=== PATIENT | male | born 1955 | race Caucasian/White ===

== ENCOUNTER 2017-04-16 22:49 | Emergency (ER) | payer SELFPAY ==
[~2017-04-16] VITALS: Ht 172.7 cm; Wt 67.0 kg
[2017-04-16 22:56] VITALS: BP 162/92; PULSE 102; RESP 18; TEMP 98.5
--- NOTE | 2017-04-16 23:14 | PD ---
HPI Chief Complaint: Alcohol/Drug Intoxication Time Seen by Provider: 23:09 Travel History International Travel<30 days: No Contact w/Intl Traveler<30days: No Traveled to known affect area: No History of Present Illness HPI Patient 61-year-old homeless male presents emergency department for evaluation of generalized weakness. Patient apparently went into a local gas station and asked the mail clerks supervisor to call 911 because he wasn't feeling well. Patient cannot really expand further except stating that his feet hurt him because he's been walking all day. He does deny any chest pain shortness of breath abdominal pain nausea or vomiting. According to EMS the patient stated he wanted the mail clerks supervisor call 911 but not before he had another beer. Patient states she's only had one beer today which is his norm. He states occasionally he drinks morbidly hasn't tonight. PFSH Past Medical History ?: Not Social History Alcohol Use: Yes Tobacco Use: Yes Substance Use: No Allergies-Medications (Allergen,Severity, Reaction): Coded Allergies: No Known Allergies (Unverified , 04/16/17) Review of Systems Except as stated in HPI: all other systems reviewed are Neg Physical Exam Narrative GENERAL: Well-developed well-nourished, unkempt, no obvious distress. SKIN: Generalized plaque-like lesions consistent with psoriasis which he states he has a history of. The lesions of feet no cellulitis. HEAD: Atraumatic. Normocephalic. EYES: Pupils equal and round. No scleral icterus. No injection or drainage. ENT: No nasal bleeding or discharge. Mucous membranes pink and moist. NECK: Trachea midline. No JVD. CARDIOVASCULAR: Regular rate and rhythm. No murmur appreciated. RESPIRATORY: No accessory muscle use. Clear to auscultation. Breath sounds equal bilaterally. GASTROINTESTINAL: Abdomen soft, non-tender, nondistended. Hepatic and splenic margins not palpable. MUSCULOSKELETAL: No obvious deformities. No clubbing. No cyanosis. No edema. NEUROLOGICAL: Awake and alert. No obvious cranial nerve deficits. Motor grossly within normal limits. Normal speech. PSYCHIATRIC: Appropriate mood and affect; insight and judgment normal. Data Data Last Documented VS Vital Signs Date Time Temp Pulse Resp B/P Pulse Ox O2 Delivery O2 Flow Rate FiO2 04/17/17 01:47 88 16 154/72 04/16/17 22:56 98.5 Orders Complete Blood Count With Diff (04/16/17 23:13) Comprehensive Metabolic Panel (04/16/17 23:13) Alcohol (Ethanol) (04/16/17 23:13) Sodium Chlor 0.9% 1000 Ml Inj (Ns 1000 M (04/16/17 23:15) Multivitamin (Theragran) (04/16/17 23:15) Chest, Single Ap (04/16/17 ) Creatine Kinase (Cpk) (04/16/17 23:00) CKMB (04/16/17 23:00) CKMB% (04/16/17 23:00) Sodium Chlor 0.9% 1000 Ml Inj (Ns 1000 M (04/17/17 00:30) Labs Laboratory Tests Test 04/16/17 23:00 White Blood Count 15.3 TH/MM3 Red Blood Count 4.20 MIL/MM3 Hemoglobin 13.3 GM/DL Hematocrit 38.6 % Mean Corpuscular Volume 92.0 FL Mean Corpuscular Hemoglobin 31.6 PG Mean Corpuscular Hemoglobin 34.4 % Concent Red Cell Distribution Width 13.4 % Platelet Count 233 TH/MM3 Mean Platelet Volume 7.9 FL Neutrophils (%) (Auto) 90.1 % Lymphocytes (%) (Auto) 1.7 % Monocytes (%) (Auto) 6.9 % Eosinophils (%) (Auto) 0.2 % Basophils (%) (Auto) 1.1 % Neutrophils # (Auto) 13.7 TH/MM3 Lymphocytes # (Auto) 0.3 TH/MM3 Monocytes # (Auto) 1.1 TH/MM3 Eosinophils # (Auto) 0.0 TH/MM3 Basophils # (Auto) 0.2 TH/MM3 CBC Comment DIFF FINAL Differential Comment Sodium Level 135 MEQ/L Potassium Level 3.7 MEQ/L Chloride Level 99 MEQ/L Carbon Dioxide Level 23.2 MEQ/L Anion Gap 13 MEQ/L Blood Urea Nitrogen 12 MG/DL Creatinine 0.90 MG/DL Estimat Glomerular Filtration 86 ML/MIN Rate Random Glucose 116 MG/DL Calcium Level 8.5 MG/DL Total Bilirubin 1.1 MG/DL Aspartate Amino Transf 65 U/L (AST/SGOT) Alanine Aminotransferase 45 U/L (ALT/SGPT) Alkaline Phosphatase 96 U/L Total Creatine Kinase 1109 U/L Creatine Kinase MB 9.4 NG/ML Creatine Kinase MB % 0.8 % Total Protein 7.7 GM/DL Albumin 3.7 GM/DL Ethyl Alcohol Level LESS THAN 3 MG/DL MDM Medical Decision Making Medical Screen Exam Complete: Yes Emergency Medical Condition: Yes Differential Diagnosis Intoxication, dehydration, electrolyte abnormality, fatigue, anemia, malingering. Narrative Course 61-year-old male presents emergency department for evaluation of generalized fatigue. His presentation by EMS with alcohol intoxication but he denies. Basic laboratory workup including CBC CMP alcohol and chest x-ray were ordered. Patient has a minimally elevated CK, creatinine is normal. Was given 2 L normal saline, significant feel better. He is stable for discharge, discussed need follow-up the primary care physician and return to ED criteria. Diagnosis Primary Impression: Fatigue Qualified Code: R53.83 - Fatigue, unspecified type Disposition: 01 DISCHARGE HOME Condition: Stable Roger Gallego MD Apr 16, 2017 23:14
[2017-04-16] MEDS ORDERED: SODIUM CHLOR 0.9% 1000 ML INJ 1,000 ML IV ONE (23:15)
[2017-04-16] MEDS ORDERED: MULTIVITAMIN TAB PO ONE (23:15)
[2017-04-16 23:43] LABS: AUTOMATED NEUTROPHIL # 13.7 TH/MM3 (1.8-7.7); BASOPHIL # 0.2 TH/MM3 (0-0.2); BASOPHIL % 1.1 % (0.0-2.0); EOSINOPHIL % 0.2 % (0.0-4.0); HEMATOCRIT 38.6 % (39.0-51.0); LYMPH % 1.7 % (9.0-44.0); LYMPHOCYTE # 0.3 TH/MM3 (1.0-4.8); MEAN CORPUSCULAR HEMOGLOBIN 31.6 PG (27.0-34.0); MEAN CORPUSCULAR HGB CONC 34.4 % (32.0-36.0); MONO % 6.9 % (0.0-8.0); NEUT % 90.1 % (16.0-70.0); PLATELET COUNT 233 TH/MM3 (150-450); RED CELL DISTRIBUTION WIDTH 13.4 % (11.6-17.2); WHITE BLOOD COUNT 15.3 TH/MM3 (4.0-11.0)
[2017-04-16 23:48] LABS: CHLORIDE 99 MEQ/L (98-107); POTASSIUM 3.7 MEQ/L (3.5-5.1); SODIUM (NA) 135 MEQ/L (136-145)
[2017-04-16 23:52] LABS: ANION GAP 13 MEQ/L (5-15); BICARBONATE 23.2 MEQ/L (21.0-32.0); BLOOD UREA NITROGEN 12 MG/DL (7-18)
[2017-04-16 23:55] LABS: ALT (GPT) 45 U/L (12-78); AST (GOT) 65 U/L (15-37); GLOMERULAR FILTRATION RATE 86 ML/MIN (>89)
[2017-04-16 23:56] LABS: TOTAL BILIRUBIN ADULT 1.1 MG/DL (0.2-1.0)
[2017-04-16 23:58] LABS: ALKALINE PHOSPHATASE 96 U/L (45-117)
--- NOTE | 2017-04-17 00:01 | RADHPO ---
EXAM DATE/TIME: 04/16/2017 23:39 [facility] COMPARISON: No previous studies available for comparison. INDICATIONS : Cough. MEDICAL HISTORY : None. SURGICAL HISTORY : None. ENCOUNTER: Initial ACUITY: 1 day PAIN SCORE: 5/10 LOCATION: Bilateral chest FINDINGS: Single AP view of the chest. The lungs are clear. Cardiomediastinal silhouette within normal limits. No evidence of pleural effusion or pneumothorax. CONCLUSION: No acute cardiopulmonary disease identified. Osmany Julien MD on April 16, 2017 at 23:57 Board Certified Radiologist. This report was verified electronically.
[2017-04-17 00:03] LABS: HEMO FLAGS DIFF FINAL
[2017-04-17 00:20] LABS: CREATINE KINASE 1109 U/L (39-308)
[2017-04-17] MEDS ORDERED: SODIUM CHLOR 0.9% 1000 ML INJ 1,000 ML IV ONE (00:30)
[2017-04-17 00:35] LABS: CKMB 9.4 NG/ML (0.5-3.6)
[2017-04-17 01:47] VITALS: BP 154/72
== END 2017-04-17 02:00 | disposition home or self-care (01) ==
LOC: PHED 22:49
DX: R53.83 Other fatigue (principal); Z59.0 Homelessness
CPT/HCPCS: 71010; 80053; 80307; 82550; 82552; 85025; 96360; 96361; 99283; J7030

== ENCOUNTER 2017-04-18 05:56 | Inpatient (IN) | payer SELFPAY ==
[2017-04-18] VITALS (8 sets, daily range): BP systolic 142–176; BP diastolic 72–83; PULSE 62–81; RESP 16–22; TEMP 97.8–99.1; O2SAT 97–100
[~2017-04-18] VITALS: Ht 180.3 cm; Wt 70.4 kg
[2017-04-18] MEDS ORDERED: SODIUM CHLOR 0.9% 1000 ML INJ 1,000 ML IV ONE ×2 (06:30→08:15)
[2017-04-18 06:38] LABS: AUTOMATED NEUTROPHIL # 9.3 TH/MM3 (1.8-7.7); BASOPHIL % 0.3 % (0.0-2.0); EOSINOPHIL # 0.1 TH/MM3 (0-0.4); EOSINOPHIL % 0.7 % (0.0-4.0); HEMO FLAGS DIFF FINAL; LYMPH % 6.6 % (9.0-44.0); LYMPHOCYTE # 0.7 TH/MM3 (1.0-4.8); MEAN CELL VOLUME 93.3 FL (80.0-100.0); MEAN CORPUSCULAR HEMOGLOBIN 30.9 PG (27.0-34.0); MEAN CORPUSCULAR HGB CONC 33.1 % (32.0-36.0); MONO % 9.3 % (0.0-8.0); NEUT % 83.1 % (16.0-70.0); PLATELET COUNT 197 TH/MM3 (150-450); RED BLOOD COUNT 3.97 MIL/MM3 (4.50-5.90); RED CELL DISTRIBUTION WIDTH 13.8 % (11.6-17.2); WHITE BLOOD COUNT 11.2 TH/MM3 (4.0-11.0)
--- NOTE | 2017-04-18 06:41 | RADRPT ---
EXAM DATE/TIME: 04/18/2017 06:18 [facility] COMPARISON: CHEST SINGLE AP, April 16, 2017, 23:39. INDICATIONS : Cough. MEDICAL HISTORY : None. SURGICAL HISTORY : None. ENCOUNTER: Initial ACUITY: 1 day PAIN SCORE: 0/10 LOCATION: Bilateral chest FINDINGS: Trace atelectasis seen left lung base. No pleural effusion or pneumothorax. Heart size stable, normal . Thoracic aorta is mildly tortuous. CONCLUSION: No significant change. Trace left base atelectasis again noted. Tony Breen MD on April 18, 2017 at 6:38 Board Certified Radiologist. This report was verified electronically.
[2017-04-18 06:45] LABS: APTT (PATIENT) 28.5 SEC (24.3-30.1); PROTHROMBIN TIME - PATIENT 11.4 SEC (9.8-11.6)
[2017-04-18 06:51] LABS: ALT (GPT) 49 U/L (12-78); ANION GAP 12 MEQ/L (5-15); AST (GOT) 111 U/L (15-37); BICARBONATE 22.4 MEQ/L (21.0-32.0); BLOOD UREA NITROGEN 20 MG/DL (7-18); CHLORIDE 103 MEQ/L (98-107); MAGNESIUM 1.7 MG/DL (1.5-2.5); POTASSIUM 3.4 MEQ/L (3.5-5.1); SODIUM (NA) 137 MEQ/L (136-145)
[2017-04-18 06:55] LABS: ALKALINE PHOSPHATASE 71 U/L (45-117); TOTAL BILIRUBIN ADULT 1.1 MG/DL (0.2-1.0)
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
[2017-04-18 07:05] LABS: CREATINE KINASE 1829 U/L (39-308)
[2017-04-18] MEDS ORDERED: THIAMINE INJ 100 MG in SODIUM CHLORIDE 0.9% INJ 100 ML IV ONE (07:15)
[2017-04-18 07:17] LABS: CKMB 11.1 NG/ML (0.5-3.6)
--- NOTE | 2017-04-18 07:24 | RADRPT ---
EXAM DATE/TIME: 04/18/2017 06:51 [facility] COMPARISON: No previous studies available for comparison. INDICATIONS : Altered mental status. RADIATION DOSE: 56.35 CTDIvol (mGy) MEDICAL HISTORY : Hernia. SURGICAL HISTORY : Hernia repair. ENCOUNTER: Initial ACUITY: 1 day PAIN SCALE: 0/10 LOCATION: cranial TECHNIQUE: Multiple contiguous axial images were obtained of the head. Using automated exposure control and adj ustment of the mA and/or kV according to patient size, radiation dose was kept as low as reasonably a chievable to obtain optimal diagnostic quality images. FINDINGS: Mild cerebral atrophy is noted. There is no acute infarct, acute hemorrhage, mass effect or extra-axi al fluid collections. Minimal subcortical white matter small vessel ischemic changes are noted. Mild mucosal thickening is noted within maxillary sinuses bilaterally. CONCLUSION: Mild cerebral atrophy and minimal subcortical white matter small vessel ischemic dimas ges bilaterally. No acute infarct, acute hemorrhage, mass effect or extra-axial fluid collections. Mi ld mucosal thickening within the maxillary sinuses bilaterally. Roger Conley MD on April 18, 2017 at 7:20 Board Certified Radiologist. This report was verified electronically.
--- NOTE | 2017-04-18 07:58 | PD ---
Data Data Last Documented VS Vital Signs Date Time Temp Pulse Resp B/P Pulse Ox O2 Delivery O2 Flow Rate FiO2 04/18/17 06:11 99.1 81 22 142/83 100 Room Air Orders Electrocardiogram (04/18/17 06:16) Complete Blood Count With Diff (04/18/17 06:16) Comprehensive Metabolic Panel (04/18/17 06:16) Creatine Kinase (Cpk) (04/18/17 06:16) Ckmb (Isoenzyme) Profile (04/18/17 06:16) Troponin I (04/18/17 06:16) Prothrombin Time / Inr (Pt) (04/18/17 06:16) Act Partial Throm Time (Ptt) (04/18/17 06:16) Blood Culture (04/18/17 06:16) C-Reactive Protein (Crp) (04/18/17 06:16) Lipase (04/18/17 06:16) Urinalysis - C+S If Indicated (04/18/17 06:16) Magnesium (Mg) (04/18/17 06:16) Ammonia (04/18/17 06:16) Chest, Single Ap (04/18/17 06:16) Ct Brain W/O Iv Contrast(Rout) (04/18/17 06:16) Iv Access Insert/Monitor (04/18/17 06:16) Ecg Monitoring (04/18/17 06:16) Oximetry (04/18/17 06:16) Drug Screen, Random Urine (04/18/17 06:16) Alcohol (Ethanol) (04/18/17 06:16) Lactic Acid Sepsis Protocol (04/18/17 06:16) Sodium Chlor 0.9% 1000 Ml Inj (Ns 1000 M (04/18/17 06:30) CKMB (04/18/17 06:10) CKMB% (04/18/17 06:10) Thiamine Inj (Thiamine Inj) (04/18/17 07:15) Sodium Chlor 0.9% 1000 Ml Inj (Ns 1000 M (04/18/17 08:15) Place In Observation (04/18/17 ) Vital Signs (Adult) GADIEL.Q4H (04/18/17 08:09) Activity Bed Rest (04/18/17 08:09) [employer] Kitchen / Telemetry GADIEL.Q8H (04/18/17 08:09) Intake + Output 06,14,22 (04/18/17 08:09) Notify Dr: Other (04/18/17 08:09) Diet Npo (04/18/17 Breakfast) Resp Oxygen Bowen C Titrat 1-4 L (04/18/17 ) Sodium Chloride 0.9% Flush (Ns Flush) (04/18/17 08:15) Sodium Chloride 0.9% Flush (Ns Flush) (04/18/17 09:00) Admit Order (Ed Use Only) (04/18/17 08:10) Labs Laboratory Tests Test 04/18/17 06:10 White Blood Count 11.2 TH/MM3 Red Blood Count 3.97 MIL/MM3 Hemoglobin 12.2 GM/DL Hematocrit 37.0 % Mean Corpuscular Volume 93.3 FL Mean Corpuscular Hemoglobin 30.9 PG Mean Corpuscular Hemoglobin 33.1 % Concent Red Cell Distribution Width 13.8 % Platelet Count 197 TH/MM3 Mean Platelet Volume 8.2 FL Neutrophils (%) (Auto) 83.1 % Lymphocytes (%) (Auto) 6.6 % Monocytes (%) (Auto) 9.3 % Eosinophils (%) (Auto) 0.7 % Basophils (%) (Auto) 0.3 % Neutrophils # (Auto) 9.3 TH/MM3 Lymphocytes # (Auto) 0.7 TH/MM3 Monocytes # (Auto) 1.0 TH/MM3 Eosinophils # (Auto) 0.1 TH/MM3 Basophils # (Auto) 0.0 TH/MM3 CBC Comment DIFF FINAL Differential Comment Prothrombin Time 11.4 SEC Prothromb Time International 1.0 RATIO Ratio Activated Partial 28.5 SEC Thromboplast Time Sodium Level 137 MEQ/L Potassium Level 3.4 MEQ/L Chloride Level 103 MEQ/L Carbon Dioxide Level 22.4 MEQ/L Anion Gap 12 MEQ/L Blood Urea Nitrogen 20 MG/DL Creatinine 0.76 MG/DL Random Glucose 83 MG/DL Lactic Acid Level 1.7 mmol/L Calcium Level 8.5 MG/DL Magnesium Level 1.7 MG/DL Total Bilirubin 1.1 MG/DL Aspartate Amino Transf 111 U/L (AST/SGOT) Alanine Aminotransferase 49 U/L (ALT/SGPT) Alkaline Phosphatase 71 U/L Ammonia 31 MCMOL/L Total Creatine Kinase 1829 U/L Creatine Kinase MB 11.1 NG/ML Creatine Kinase MB % 0.6 % Troponin I LESS THAN 0.02 NG/ML C-Reactive Protein 8.00 MG/DL Total Protein 6.7 GM/DL Albumin 3.2 GM/DL Lipase 252 U/L Ethyl Alcohol Level LESS THAN 3 MG/DL MDM Medical Record Reviewed: Yes Supervised Visit with KEYA: No Narrative Course CBC & BMP Diagram 04/18/17 06:10 Total Ck 1,829 CKMG 11.1 Ammonia 31 CRP 8.0 LA 1.7 EtOH < 3 Coags normal Patient was reassessed at about 745. At that time he was able to state his name and he knew that he was in the hospital. He did not know the time of the year. He did not recall the events of the evening however was able to confirm that he stays with his sister and his [id number]. He states that on most days he drinks alcohol typically beer or vodka. Pt has rhabdomyolysis worsening in severity. He'll be admitted for IV hydration and monitoring of the electrolytes and reassessment of his mental status. Discussed with Dr. Jurado. Diagnosis Primary Impression: Altered mental status Qualified Code: R41.0 - Disorientation Additional Impression: Rhabdomyolysis Qualified Code: M62.82 - Non-traumatic rhabdomyolysis Scripts No Active Prescriptions or Reported Meds Raymond Oliva MD Apr 18, 2017 07:58
[2017-04-18 08:09] LABS: AMPHETAMINE, URINE NEG (NEG); BARBITURATES, URINE NEG (NEG); COCAINE, URINE NEG (NEG)
[2017-04-18] MEDS ORDERED: SODIUM CHLORIDE 0.9% FLUSH 10 ML FLUSH IV FLUSH PRN ×2 (08:15→08:45)
[2017-04-18 08:17] LABS: BLOOD, URINE TRACE (NEG); COMMENT (UR) CULT NOT INDICATED; CULTURE IF INDICATED CULT NOT INDICATED; GLUCOSE,URINE NEG (NEG); KETONE, URINE 10 mg/dL (NEG); MUCUS URINE FEW /lpf (OCC); NITRITE,URINE NEG (NEG); PH, URINE 5.5 (5.0-8.5); SQUAMOUS EPITHELIAL CELL URINE 1 /hpf (0-5); URINE COLOR YELLOW (YELLW/STRAW)
[2017-04-18] MEDS ORDERED: LORazepam 2 MG/ML VIAL IV PUSH PRN ×4 (08:45)
[2017-04-18] MEDS ORDERED: ONDANSETRON HCL 4 MG/2 ML VIAL IVP PRN (08:45)
[2017-04-18] MEDS ORDERED: LORazepam 2 MG TAB PO PRN (08:45)
[2017-04-18] MEDS ORDERED: NALOXONE HCL 0.4 MG/ML AMP IV PRN (08:45)
[2017-04-18] MEDS ORDERED: FLUMAZENIL 0.5 MG/5 ML VIAL IV PUSH PRN (08:45)
[2017-04-18] MEDS ORDERED: LORazepam 1 MG TAB PO PRN (08:45)
[2017-04-18] MEDS ORDERED: DOCUSATE SODIUM 50 MG/SENNA 8.6 MG TAB PO PRN (08:45)
--- NOTE | 2017-04-18 08:59 | HHI.HP ---
HPI Service Family Medicine Primary Care Physician No Primary Care Physician Admission Diagnosis AMS, Rhabdomyolysis Diagnoses: International Travel<30 Days: No Contact w/Intl Traveler<30days: No Known Affected Area: No History of Present Illness 61 year old male found on the side of the road lying down. Noted by bystanders who called ambulance services. Patient was noted to be confused upon arrival. Initially with altered mental status, oriented to place and person but not time. Currently he is fully oriented, but does not recall the events leading to his visit to the ED. The last thing he remembers was falling off the couch onto the floor onto his left hand at home. He does not recall ever being on the side of the road. He reports heavy drinking, at about 4 to 5 beers per day plus a pint of Vodka per day. He does not report a history of alcohol withdrawal or seizures. He reports no history of syncope. He reports feeling good right now, reporting no headaches, blurry vision, neck stiffness, chest pain, shortness of breath, abdominal pain, nausea, vomiting, diarrhea, or calf tenderness or swelling. (Sam Jurado MD R2) Review of Systems Constitutional: DENIES: Diaphoretic episodes, Fatigue, Fever, Weight gain, Weight loss, Chills, Dizziness, Change in appetite Endocrine: DENIES: Polydipsia, Polyuria, Polyphagia Eyes: DENIES: Blurred vision, Eye inflammation, Vision loss, Double Vision Ears, nose, mouth, throat: DENIES: Vertigo, Throat pain, Running Nose Respiratory: DENIES: Cough, Wheezing, Sputum production, Shortness of breath Cardiovascular: COMPLAINS OF: Syncope (questionable), Lower Extremity Edema, DENIES: Chest pain, Dyspnea on Exertion, Orthopnea Gastrointestinal: DENIES: Black stools, Diarrhea, Nausea, Vomiting, Difficulty Swallowing Genitourinary: DENIES: Urinary frequency Musculoskeletal: DENIES: Joint pain, Back pain, Neck pain Integumentary: COMPLAINS OF: Rash (psoriasis) Hematologic/lymphatic: DENIES: Lymphadenopathy Immunologic/allergic: DENIES: Urticaria Neurologic: DENIES: Headache, Seizures Psychiatric: COMPLAINS OF: Confusion, DENIES: Anxiety, Depression, Agitation, Suicidal Ideation (Sam Jurado MD R2) Past Family Social History Past Medical History Psoriasis (psoriatic?) arthritis Past Surgical History right leg surgery for broken leg Reported Medications None (Sam Jurado MD R2) Allergies: Coded Allergies: No Known Allergies (Unverified , 04/18/17) Active Ordered Medications Inpatient Medications Enoxaparin Sodium (Lovenox Inj) 40 mg Q24H SQ ; Start 04/18/17 at 10:00 Flumazenil (Romazicon Inj) 0.2 mg Q1M PRN IV PUSH SEE LABEL COMMENTS; Start at 08:45 Folic Acid (Folate) 1 mg DAILY PO ; Start 04/18/17 at 09:00 Lorazepam (Ativan Inj) 2 mg Q15M PRN IV PUSH CIWA > 20; Start 04/18/17 at 08:45 Lorazepam (Ativan) 2 mg Q2H PRN PO CIWA 11-14; Start 04/18/17 at 08:45 Multivitamins (Theragran) 1 tab DAILY PO ; Start 04/18/17 at 09:00 Naloxone HCl (Narcan Inj) 0.4 mg UNSCH PRN IV SEE LABEL COMMENTS; Start at 08:45 Ondansetron HCl (Zofran Inj) 4 mg Q6H PRN IVP NAUSEA OR VOMITING; Start at 08:45 Senna/Docusate Sodium (Sharmaine-Colace) 1 tab BID PRN PO constipation; Start at 08:45 Sodium Chloride (NS 1000 ml Inj) 1,000 ml @ 110 mls/hr Q9H6M IV ; Start at 08:37 Sodium Chloride (NS Flush) 2 ml BID IV FLUSH ; Start 04/18/17 at 09:00; Stop at 09:05; Status DC Sodium Chloride 2 ml 2 ml BID IV FLUSH ; Start 04/18/17 at 09:00 Thiamine HCl (Vitamin B1) 100 mg DAILY PO ; Start 04/18/17 at 09:00 Thiamine HCl/ Sodium Chloride (Thiamine Inj/NS Inj) 101 ml @ 101 mls/hr ONCE ONCE IV Last administered on 04/18/17t 07:45; Start 04/18/17 at 07:15; Stop at 08:27; Status DC Family History Father: liver cancer Mother: cancer unspecified Social History Smokes 1/2 PPD drinks 4 beers and pint of vodka daily No history of alc withdrawal or seizures per patient report Lives with sister, brother in law in [place] Vague about why he's in [facility] 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 Clear ulceration on right back of neck with clear serous discharge. HEAD: Atraumatic. Normocephalic. Minor abrasion on left temporal region with dried blood. EYES: Pupils equal round and reactive. Extraocular motions intact. No scleral icterus. No injection or drainage. ENT: Nose without bleeding, purulent drainage or septal hematoma. Throat without erythema, tonsillar hypertrophy or exudate. Uvula midline. Airway patent. NECK: Trachea midline. No JVD or lymphadenopathy. Supple, nontender, no meningeal signs. CARDIOVASCULAR: Regular rate and rhythm without murmurs, gallops, or rubs. RESPIRATORY: Clear to auscultation. Breath sounds equal bilaterally. No wheezes , rales, or rhonchi. GASTROINTESTINAL: Abdomen soft, non-tender, nondistended. No hepato-splenomegaly , or palpable masses. No guarding. MUSCULOSKELETAL: Extremities without clubbing, cyanosis, or edema. No calf tenderness. Negative Homans sign bilaterally. Pain on palpation of the left hand joints, general left hand swelling. NEUROLOGICAL: Awake and alert. Cranial nerves II through XII intact. Motor and sensory grossly within normal limits. Five out of 5 muscle strength in all muscle groups. Normal speech. Laboratory Laboratory Tests Test 04/18/17 04/18/17 06:10 07:40 White Blood Count 11.2 Red Blood Count 3.97 Hemoglobin 12.2 Hematocrit 37.0 Mean Corpuscular Volume 93.3 Mean Corpuscular Hemoglobin 30.9 Mean Corpuscular Hemoglobin 33.1 Concent Red Cell Distribution Width 13.8 Platelet Count 197 Mean Platelet Volume 8.2 Neutrophils (%) (Auto) 83.1 Lymphocytes (%) (Auto) 6.6 Monocytes (%) (Auto) 9.3 Eosinophils (%) (Auto) 0.7 Basophils (%) (Auto) 0.3 Neutrophils # (Auto) 9.3 Lymphocytes # (Auto) 0.7 Monocytes # (Auto) 1.0 Eosinophils # (Auto) 0.1 Basophils # (Auto) 0.0 CBC Comment DIFF FINAL Differential Comment Prothrombin Time 11.4 Prothromb Time International 1.0 Ratio Activated Partial 28.5 Thromboplast Time Sodium Level 137 Potassium Level 3.4 Chloride Level 103 Carbon Dioxide Level 22.4 Anion Gap 12 Blood Urea Nitrogen 20 Creatinine 0.76 Random Glucose 83 Lactic Acid Level 1.7 Calcium Level 8.5 Magnesium Level 1.7 Total Bilirubin 1.1 Aspartate Amino Transf 111 (AST/SGOT) Alanine Aminotransferase 49 (ALT/SGPT) Alkaline Phosphatase 71 Ammonia 31 Total Creatine Kinase 1829 Creatine Kinase MB 11.1 Creatine Kinase MB % 0.6 Troponin I LESS THAN 0.02 C-Reactive Protein 8.00 Total Protein 6.7 Albumin 3.2 Lipase 252 Ethyl Alcohol Level LESS THAN 3 Urine Color YELLOW Urine Turbidity CLEAR Urine pH 5.5 Urine Specific [place] 1.018 Urine Protein TRACE Urine Glucose (UA) NEG Urine Ketones 10 Urine Occult Blood TRACE Urine Nitrite NEG Urine Bilirubin NEG Urine Urobilinogen 2.0 Urine Leukocyte Esterase NEG Urine RBC 2 Urine WBC 2 Urine Squamous Epithelial 1 Cells Urine Mucus FEW Microscopic Urinalysis Comment CULT NOT INDICATED Urine Opiates Screen NEG Urine Barbiturates Screen NEG Urine Amphetamines Screen NEG Urine Benzodiazepines Screen NEG Urine Cocaine Screen NEG Urine Cannabinoids Screen NEG Date/Time Procedure Status Source Growth 04/18/17 06:20 Aerobic Blood Culture Received Blood Peripheral Pending 04/18/17 06:20 Anaerobic Blood Culture Received Blood Peripheral Pending (Sam Jurado MD R2) Result Diagram: 04/18/17 0610 04/18/17 0610 Imaging Last [address] 04/18/17615 Signed Impressions: Service Date/Time: Tuesday, April 18, 2017 06:51 - CONCLUSION: Mild cerebral atrophy and minimal subcortical white matter small vessel ischemic changes bilaterally. No acute infarct, acute hemorrhage, mass effect or extra-axial fluid collections. Mild mucosal thickening within the maxillary sinuses bilaterally. Roger Conley MD Chest X-Ray 04/18/17615 Signed Impressions: Service Date/Time: Tuesday, April 18, 2017 06:18 - CONCLUSION: No significant change. Trace left base atelectasis again noted. Tony Breen MD (Sam Jurado MD R2) Septic Shock Reassessment Heart: Regular rate and rhythm Lungs: Clear Skin: Warm Capillary Refill: <2 seconds (Sam Jurado MD R2) Assessment and Plan Assessment and Plan 61 year old male found down on side of road, admitted for altered mental status , rhabdomyolysis Code Status FULL CODE Discussed Condition With Discussed with Dr. Héctor Moncada (Sam Jurado MD R2) Attending Attestation Patient seen and examined. Case reviewed and discussed with the resident team. Agree with plan of care as discussed with me and documented in the resident note. poor and confused historian overall. workup for neurologic or infectious cause pending. pt seen by me in his room on day of admission (Sienna Watkins MD) Problem List: (1) Altered mental status Status: Acute Plan: Found down on side of road, does not recall the details about what happened. No reported history of seizures or syncope. ROS essentially negative. No neurological deficits on exam. WBC elevated to 11.2. Potassium borderline low at 3.4. AST elevated in alcoholism pattern (AST 111, ALT 49). Ammonia normal. CK elevated to 1829. CRP of 8.0. CT head negative. Chest x-ray normal. UA normal. UDS negative, alcohol negative. DDx includes syncope, seizure, alcohol withdrawal, intoxication, stroke. - Blood cultures pending - IVF for rhabdomyolysis - ECHO to rule out heart defect - Carotid ultrasound - MRI brain pending. - EEG pending (2) Rhabdomyolysis Status: Acute Plan: CK elevated to 1829 after being found down on ground. Received 2 liters via fluid boluses in the ED. - Continue IVF with NS at maintenance. - Trend CK levels - Monitor kidney function (3) Alcoholism Status: Chronic Plan: Significant alcoholism history. - [facility] protocol - Thiamine, folic acid, multivitamin - Benzodiazepines per CIWA protocol scoring - Counseling on alcoholism - Referral to outpatient rehab - Case management consult (4) No contraindication to deep vein thrombosis (DVT) prophylaxis Status: Acute Plan: - Lovenox 40 mg daily (Sam Jurado MD R2) Physician Certification 2 Midnight Certification Type: Admission for Inpatient Services Order for Inpatient Services The services are ordered in accordance with Medicare regulations or non- Medicare payer requirements, as applicable. In the case of services not specified as inpatient-only, they are appropriately provided as inpatient services in accordance with the 2-midnight benchmark. Estimated LOS (days): 3 days is the estimated time the patient will need to remain in the hospital, assuming treatment plan goals are met and no additional complications. Post-Hospital Plan: Home (Sam Jurado MD R2) Problem Qualifiers (1) Altered mental status: Qualified Code: R41.0 - Disorientation (2) Rhabdomyolysis: Qualified Code: M62.82 - Non-traumatic rhabdomyolysis Sam Jurado MD R2 Apr 18, 2017 08:59 Sienna Watkins MD Apr 19, 2017 13:00
[2017-04-18] MEDS ORDERED: SODIUM CHLORIDE 0.9% FLUSH 10 ML FLUSH IV FLUSH SCH (09:00)
[2017-04-18] MEDS: SODIUM CHLORIDE 0.9% FLUSH 10 ML FLUSH IV FLUSH SCH ×2 (09:00→19:14)
--- NOTE | 2017-04-18 11:00 | RADRPT ---
EXAM DATE/TIME: 04/18/2017 08:57 [facility] COMPARISON: No previous studies available for comparison. INDICATIONS : Patient states left hand pain. MEDICAL HISTORY : None. SURGICAL HISTORY : None. ENCOUNTER: Initial ACUITY: 1 day PAIN SCORE: 3/10 LOCATION: Left Hand FINDINGS: An acute fracture is not seen. There does appear to be some remodeling at the distal lateral radius. There is also prominent remodeling at the base of first metacarpal and at the base of the first pro ximal phalanx, and the proximal aspect of the first distal phalanx. These areas are likely from prio r trauma. There is metallic density seen over the dorsal suspect of the thumb at the level of the fi rst interphalangeal joint. There also appears to be as mall area of suspected metallic density seen anterior to the distal ulna. There is hypertrophic change of the first carpometacarpal joint. There appears to be some hypertrophic change at the base of the fifth middle phalanx. There does appear to be soft tissue swelling throughout the hand. CONCLUSION: 1. Chronic bony changes as described above. An acute bony abnormality is not clearly identified. 2. Soft tissue swelling. Tony Miranda MD on April 18, 2017 at 10:32 Board Certified Radiologist. This report was verified electronically.
[2017-04-18] MEDS: THIAMINE HCL 100 MG TAB PO SCH (11:07)
[2017-04-18] MEDS: MULTIVITAMIN TAB PO SCH (11:07)
[2017-04-18] MEDS: SODIUM CHLOR 0.9% 1000 ML INJ 1,000 ML IV SCH ×2 (11:08→19:14)
[2017-04-18] MEDS: ENOXAPARIN SODIUM 40 MG/0.4 ML SYRINGE SQ SCH (11:08)
[2017-04-18] MEDS: FOLIC ACID 1 MG TAB PO SCH (11:08)
--- NOTE | 2017-04-18 12:19 | RADRPT ---
EXAM DATE/TIME: 04/18/2017 09:27 [facility] COMPARISON: No previous studies available for comparison. INDICATIONS : Syncope. MEDICAL HISTORY : Syncope. SURGICAL HISTORY : Hernia repair. ENCOUNTER: Initial ACUITY: 1 day PAIN SCORE: 0/10 LOCATION: Bilateral neck PEAK SYSTOLIC VELOCITIES (cm/sec): ICA/CCA RATIO: Right: 0.8 Left: 0.8 ICA: Right: 61 Left: 68 CCA: Right: 80 Left: 88 ECA: Right: 51 Left: 97 VERTEBRAL: Right: 37 antegrade Left: 50 antegrade Elevated flow velocities and ICA/CCA ratios have been found to correlate with increased degrees of vessel stenosis, calculated as percentage of diameter relative to a normal segment of distal ICA/CCA FINDINGS: RIGHT CAROTID: No significant stenosis is visualized. The waveforms are within normal limits. LEFT CAROTID: No significant stenosis is visualized. The waveforms are within normal limits. VERTEBRAL ARTERIES: Antegrade flow is seen in both vertebral arteries. MISCELLANEOUS: None. CONCLUSION: Normal examination. Tony Miranda MD on April 18, 2017 at 12:17 Board Certified Radiologist. This report was verified electronically.
[2017-04-18 14:10] LABS: BICARBONATE 23.4 MEQ/L (21.0-32.0); POTASSIUM 3.7 MEQ/L (3.5-5.1)
--- NOTE | 2017-04-18 14:21 | EKG ---
Date Performed: 04/18/2017 Time Performed: 06:33:41 PTAGE: 61 years EKG: Sinus rhythm MARKED LEFT AXIS DEVIATION ABNORMAL ECG NO PREVIOUS TRACING DOCTOR: Dino Temple Interpretating Date/Time 04/18/2017 14:16:17
[2017-04-18 14:48] LABS: CKMB 7.3 NG/ML (0.5-3.6)
--- NOTE | 2017-04-18 16:43 | ECHRPT ---
Indication: SYNCOPE CONCLUSIONS The left ventricular systolic function is normal with an estimated ejection fraction in the range of 55-60%. The right ventriclar size is upper limits of normal. The left ventricular systolic function is normal with an estimated ejection fraction in the range of 55-60%. BP: 142 / 83 HR: 81 Rhythm: Sinus MEASUREMENTS (Male / Female) Normal Values Technical Quality:Good 2D ECHO LV Diastolic Diameter PLAX 4.5 cm 4.2 - 5.9 / 3.9 - 5.3 cm LV Systolic Diameter PLAX 3.3 cm IVS Diastolic Thickness 1.0 cm 0.6 - 1.0 / 0.6 - 0.9 cm LVPW Diastolic Thickness 0.8 cm 0.6 - 1.0 / 0.6 - 0.9 cm LV Relative Wall Thickness 0.4 RV Internal Dim ED PLAX 1.9 cm LA Systolic Diameter LX 3.6 cm 3.0 - 4.0 / 2.7 - 3.8 cm M-MODE Aortic Root Diameter MM 2.9 cm AV Cusp Separation MM 1.9 cm DOPPLER AV Peak Velocity 159.0 cm/s AV Peak Gradient 10.1 mmHg LVOT Peak Velocity 82.9 cm/s LVOT Peak Gradient 2.7 mmHg Mitral E Point Velocity 83.4 cm/s Mitral A Point Velocity 94.8 cm/s Mitral E to A Ratio 0.9 TR Peak Velocity 138.0 cm/s TR Peak Gradient 7.6 mmHg FINDINGS LEFT VENTRICLE Normal left ventricular size and wall thickness. The left ventricular systolic function is normal wi th an estimated ejection fraction in the range of 55-60%. Left ventricular diastolic function parameters a re normal. RIGHT VENTRICLE The right ventriclar size is upper limits of normal. LEFT ATRIUM The left atrial size is normal. RIGHT ATRIUM The right atrial size is normal. ATRIAL SEPTUM Normal atrial septal thickness without atrial level shunting by limited color doppler interrogation. AORTA The aortic root and proximal ascending aorta are normal in size on limited imaging. MITRAL VALVE Structurally normal mitral valve. No mitral valve stenosis or regurgitation. AORTIC VALVE Trileaflet aortic valve. No aortic valve stenosis or regurgitation. TRICUSPID VALVE Structurally normal tricuspid valve. No tricuspid valve stenosis or regurgitation. PULMONARY VALVE The pulmonary valve is not well visualized. VESSELS The inferior vena cava is normal in size. PERICARDIUM No pericardial effusion. Marcel Angela MD (Electronically Signed) Final Date:18 April 2017 16:42
[2017-04-19] VITALS (7 sets, daily range): BP systolic 104–153; BP diastolic 55–79; PULSE 56–90; RESP 16–18; TEMP 97.4–98.7; O2SAT 91–98
[2017-04-19] MEDS: SODIUM CHLOR 0.9% 1000 ML INJ 1,000 ML IV SCH ×4 (02:44→20:18)
--- NOTE | 2017-04-19 05:33 | MG ---
cc: NATHALIA LUGO MD Lab No: [id number] Date: 04/18/2017 Age: 61 Sex: M Race: EEG RECORD NUMBER [id number] DATE OF 1955 INDICATIONS A 61-year-old with history of confusion. FINDINGS Attenuation with slowing of background at the beginning suggestive of drowsy state, Stage I sleep, followed by spindles, transition into Stage II sleep. Morton to be snoring during arousals. Reasonably good incremental posterior rhythm. Reduced driving with photic stimulation. Single lead EKG showing sinus rhythm. INTERPRETATION Mainly Stage II sleep throughout the recording with brief episodes of wakefulness. Seizure activity not observed. Clinical correlation. Nathalia Lugo MD MG/SSB /9:22 PM /5:33 AM
[2017-04-19 06:54] LABS: AUTOMATED NEUTROPHIL # 7.3 TH/MM3 (1.8-7.7); BASOPHIL # 0.1 TH/MM3 (0-0.2); BASOPHIL % 0.9 % (0.0-2.0); EOSINOPHIL # 0.2 TH/MM3 (0-0.4); EOSINOPHIL % 2.3 % (0.0-4.0); HEMATOCRIT 37.6 % (39.0-51.0); HEMO FLAGS DIFF FINAL; LYMPH % 6.2 % (9.0-44.0); LYMPHOCYTE # 0.5 TH/MM3 (1.0-4.8); MEAN CORPUSCULAR HEMOGLOBIN 30.7 PG (27.0-34.0); MEAN CORPUSCULAR HGB CONC 32.3 % (32.0-36.0); MONO % 8.1 % (0.0-8.0); NEUT % 82.5 % (16.0-70.0); PLATELET COUNT 170 TH/MM3 (150-450); RED BLOOD COUNT 3.96 MIL/MM3 (4.50-5.90); RED CELL DISTRIBUTION WIDTH 13.8 % (11.6-17.2); WHITE BLOOD COUNT 8.8 TH/MM3 (4.0-11.0)
[2017-04-19 07:33] LABS: ALKALINE PHOSPHATASE 60 U/L (45-117); ALT (GPT) 38 U/L (12-78); ANION GAP 14 MEQ/L (5-15); AST (GOT) 61 U/L (15-37); BICARBONATE 19.6 MEQ/L (21.0-32.0); BLOOD UREA NITROGEN 13 MG/DL (7-18); CHLORIDE 107 MEQ/L (98-107); CREATINE KINASE 597 U/L (39-308); GLOMERULAR FILTRATION RATE 151 ML/MIN (>89); POTASSIUM 3.1 MEQ/L (3.5-5.1); SODIUM (NA) 141 MEQ/L (136-145); TOTAL BILIRUBIN ADULT 1.1 MG/DL (0.2-1.0)
[2017-04-19] MEDS: MULTIVITAMIN TAB PO SCH (08:00)
[2017-04-19] MEDS: THIAMINE HCL 100 MG TAB PO SCH (08:00)
[2017-04-19] MEDS: FOLIC ACID 1 MG TAB PO SCH (08:00)
[2017-04-19] MEDS: SODIUM CHLORIDE 0.9% FLUSH 10 ML FLUSH IV FLUSH SCH ×2 (08:03→20:18)
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
[2017-04-19] MEDS: ENOXAPARIN SODIUM 40 MG/0.4 ML SYRINGE SQ SCH (09:37)
[2017-04-19] MEDS ORDERED: POTASSIUM CHLORIDE 10 MEQ CONTROLLED RELEASE TAB PO ONE ×2 (10:00→20:00)
[2017-04-19] MEDS ORDERED: Vancomycin Consult Pharmacy 1 EA OTHER SCH (12:15)
[2017-04-19] MEDS ORDERED: ACETAMINOPHEN 325 MG TAB PO PRN (12:30)
[2017-04-19] MEDS ORDERED: ACETAMINOPHEN/HYDROcodone 325 MG/5 MG TAB PO PRN (12:30)
[2017-04-19] MEDS ORDERED: NALOXONE HCL 0.4 MG/ML AMP IV PRN (12:30)
[2017-04-19] MEDS: VANCOMYCIN INJ 1,500 MG in SODIUM CHLORID 0.9% 500 ML INJ 500 ML IV SCH (14:23)
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
[2017-04-20] VITALS (8 sets, daily range): BP systolic 148–170; BP diastolic 80–94; PULSE 63–79; RESP 18–20; TEMP 97.5–99.1; O2SAT 97–100
[2017-04-20] MEDS: VANCOMYCIN INJ 1,500 MG in SODIUM CHLORID 0.9% 500 ML INJ 500 ML IV SCH ×2 (01:35→15:28)
[2017-04-20 05:36] LABS: HEMATOCRIT 35.9 % (39.0-51.0); MEAN CELL VOLUME 93.2 FL (80.0-100.0); MEAN CORPUSCULAR HEMOGLOBIN 31.7 PG (27.0-34.0); PLATELET COUNT 175 TH/MM3 (150-450); RED BLOOD COUNT 3.85 MIL/MM3 (4.50-5.90); RED CELL DISTRIBUTION WIDTH 13.5 % (11.6-17.2); REVIEW FLAG FINAL; WHITE BLOOD COUNT 7.8 TH/MM3 (4.0-11.0)
[2017-04-20 06:02] LABS: BICARBONATE 27.1 MEQ/L (21.0-32.0); POTASSIUM 3.5 MEQ/L (3.5-5.1)
[2017-04-20] MEDS: SODIUM CHLOR 0.9% 1000 ML INJ 1,000 ML IV SCH (06:18)
[2017-04-20] MEDS: MULTIVITAMIN TAB PO SCH (08:37)
[2017-04-20] MEDS: FOLIC ACID 1 MG TAB PO SCH (08:37)
[2017-04-20] MEDS: THIAMINE HCL 100 MG TAB PO SCH (08:37)
[2017-04-20] MEDS: SODIUM CHLORIDE 0.9% FLUSH 10 ML FLUSH IV FLUSH SCH ×2 (08:37→21:00)
[2017-04-20] MEDS: ENOXAPARIN SODIUM 40 MG/0.4 ML SYRINGE SQ SCH (08:38)
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
--- NOTE | 2017-04-20 12:53 | HHI.IDPN ---
Note Infectious Disease Note Patient feels well and is alert and awake. Sitting up in chair. No complaints. Afebrile. Blood culture has Staph aureus in one set and staph coag negative in the 2nd set. of same draw. Presented with altered mental status and rhabdomyolysis. PAST MEDICAL HISTORY Psoriasis, arthritis, history of surgery for broken right leg. ALLERGIES NO KNOWN DRUG ALLERGIES. ANTIBIOTICS Vancomycin. SOCIAL HISTORY: The patient reportedly drinks alcohol on a daily basis. Positive tobacco use, 1/2 pack per day. No illicit drug use. OBJECTIVE: Vital Signs Date Time Temp Pulse Resp B/P Pulse Ox O2 Delivery O2 Flow Rate FiO2 04/20/17 07:50 97.9 64 20 170/87 98 04/20/17 07:39 63 04/20/17 04:00 98.3 67 18 153/82 97 04/20/17 00:00 98.1 64 18 157/94 98 04/19/17 20:35 90 04/19/17 20:15 97.4 63 18 150/79 98 04/19/17 16:00 98.7 60 18 128/66 98 04/19/17 04/19/17 04/20/17 15:00 23:00 07:00 Intake Total 960 ml 2500 ml 1305 ml Output Total 1250 ml 1600 ml Balance 960 ml 1250 ml -295 ml Intake Oral 960 ml 480 ml 240 ml IV Total 2020 ml 1065 ml Output Urine Total 1250 ml 1600 ml # Voids 2 # Bowel Movements 1 1 Laboratory Tests Test 04/19/17 04/20/17 06:05 04:55 White Blood Count 8.8 TH/MM3 7.8 TH/MM3 Red Blood Count 3.96 MIL/MM3 3.85 MIL/MM3 Hemoglobin 12.2 GM/DL 12.2 GM/DL Hematocrit 37.6 % 35.9 % Mean Corpuscular Volume 95.0 FL 93.2 FL Mean Corpuscular Hemoglobin 30.7 PG 31.7 PG Mean Corpuscular Hemoglobin 32.3 % 34.0 % Concent Red Cell Distribution Width 13.8 % 13.5 % Platelet Count 170 TH/MM3 175 TH/MM3 Mean Platelet Volume 8.3 FL 8.2 FL Neutrophils (%) (Auto) 82.5 % Lymphocytes (%) (Auto) 6.2 % Monocytes (%) (Auto) 8.1 % Eosinophils (%) (Auto) 2.3 % Basophils (%) (Auto) 0.9 % Neutrophils # (Auto) 7.3 TH/MM3 Lymphocytes # (Auto) 0.5 TH/MM3 Monocytes # (Auto) 0.7 TH/MM3 Eosinophils # (Auto) 0.2 TH/MM3 Basophils # (Auto) 0.1 TH/MM3 CBC Comment DIFF FINAL Differential Comment Laboratory Tests Test 04/18/17 04/19/17 04/20/17 13:24 06:05 04:55 Sodium Level 140 MEQ/L 141 MEQ/L 141 MEQ/L Potassium Level 3.7 MEQ/L 3.1 MEQ/L 3.5 MEQ/L Chloride Level 107 MEQ/L 107 MEQ/L 107 MEQ/L Carbon Dioxide Level 23.4 MEQ/L 19.6 MEQ/L 27.1 MEQ/L Anion Gap 10 MEQ/L 14 MEQ/L 7 MEQ/L Blood Urea Nitrogen 16 MG/DL 13 MG/DL 10 MG/DL Creatinine 0.60 MG/DL 0.55 MG/DL 0.60 MG/DL Estimat Glomerular Filtration 137 ML/MIN 151 ML/MIN 137 ML/MIN Rate Random Glucose 70 MG/DL 61 MG/DL 131 MG/DL Calcium Level 7.9 MG/DL 7.5 MG/DL 8.1 MG/DL Total Creatine Kinase 1242 U/L 597 U/L Creatine Kinase MB 7.3 NG/ML 4.0 NG/ML Creatine Kinase MB % 0.6 % 0.7 % Vitamin B12 Level 265 PG/ML Total Bilirubin 1.1 MG/DL Aspartate Amino Transf 61 U/L (AST/SGOT) Alanine Aminotransferase 38 U/L (ALT/SGPT) Alkaline Phosphatase 60 U/L Total Protein 5.6 GM/DL Albumin 2.5 GM/DL Thyroid Stimulating Hormone 2.710 uIU/ML 3rd Gen Microbiology Date/Time Procedure Status Source Growth 04/18/17 06:10 Aerobic Blood Culture - Preliminary Resulted Blood Peripheral Staph Sp Coagulase Negative 04/18/17 06:10 Anaerobic Blood Culture - Preliminary Resulted Staph Sp Coagulase Negative 04/18/17 06:20 Aerobic Blood Culture - Preliminary Resulted Blood Peripheral Staphylococcus Aureus 04/18/17 06:20 Anaerobic Blood Culture - Preliminary Resulted Staphylococcus Aureus 04/20/17 04:55 Aerobic Blood Culture Received Blood Peripheral Pending 04/20/17 04:55 Anaerobic Blood Culture Received Blood Peripheral Pending 04/20/17 05:05 Aerobic Blood Culture Received Blood Peripheral Pending 04/20/17 05:05 Anaerobic Blood Culture Received Blood Peripheral Pending PHYSICAL EXAMINATION GEN: No acute distress. He is awake and alert. HEENT: Oropharynx no visible lesions. Moist mucosa. Neck: Supple without adenopathy. Lungs: Clear breath sounds. Heart: Regular S1-S2 without murmurs. Abdomen: Bowel sounds present, soft, no tenderness appreciated. Extremities: No clubbing or cyanosis or edema. Skin: Both arms have erythema which has a sunburn-like appearance from the sleeve line at the upper arm to the wrist. Diffuse scaly dry excoriated skin lesions. Neuro: No gross focal findings. Psychiatric: Calm and cooperative. IMPRESSION: Positive blood culture. One blood culture has staph aureus. No clear source. Extensive psoriasis. RECOMMENDATIONS 1. Continue vancomycin 2. Monitor follow up blood cultures. If positive for staph aureus he should have a BRIGITTE. Flakito Frye MD Apr 20, 2017 12:53
[2017-04-21] VITALS (7 sets, daily range): BP systolic 126–157; BP diastolic 76–96; PULSE 66–79; RESP 16–20; TEMP 96.5–99.1; O2SAT 97–100
[2017-04-21] MEDS ORDERED: PHARMACY ORDERED LAB ONE (01:45)
[2017-04-21] MEDS: VANCOMYCIN INJ 1,500 MG in SODIUM CHLORID 0.9% 500 ML INJ 500 ML IV SCH (02:15)
[2017-04-21 07:47] LABS: HEMATOCRIT 37.7 % (39.0-51.0); MEAN CELL VOLUME 93.9 FL (80.0-100.0); MEAN CORPUSCULAR HEMOGLOBIN 31.3 PG (27.0-34.0); MEAN CORPUSCULAR HGB CONC 33.4 % (32.0-36.0); PLATELET COUNT 182 TH/MM3 (150-450); RED BLOOD COUNT 4.02 MIL/MM3 (4.50-5.90); RED CELL DISTRIBUTION WIDTH 13.7 % (11.6-17.2); REVIEW FLAG FINAL; WHITE BLOOD COUNT 7.3 TH/MM3 (4.0-11.0)
[2017-04-21] MEDS: THIAMINE HCL 100 MG TAB PO SCH (07:52)
[2017-04-21] MEDS: FOLIC ACID 1 MG TAB PO SCH (07:52)
[2017-04-21] MEDS: MULTIVITAMIN TAB PO SCH (07:52)
[2017-04-21] MEDS: SODIUM CHLORIDE 0.9% FLUSH 10 ML FLUSH IV FLUSH SCH ×2 (07:55→20:25)
[2017-04-21] MEDS: ENOXAPARIN SODIUM 40 MG/0.4 ML SYRINGE SQ SCH (08:00)
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
[2017-04-21 08:20] LABS: BICARBONATE 30.7 MEQ/L (21.0-32.0); POTASSIUM 3.7 MEQ/L (3.5-5.1)
--- NOTE | 2017-04-21 15:09 | HHI.IDPN ---
Note Infectious Disease Note Patient has no complaints. Afebrile. Repeat blood culture has no growth in 1 day. Blood culture has Staph aureus in one set and staph coag negative in the 2nd set. of same draw. Presented with altered mental status and rhabdomyolysis. PAST MEDICAL HISTORY Psoriasis, arthritis, history of surgery for broken right leg. ALLERGIES NO KNOWN DRUG ALLERGIES. ANTIBIOTICS Vancomycin. OBJECTIVE: Vital Signs Date Time Temp Pulse Resp B/P Pulse Ox O2 Delivery O2 Flow Rate FiO2 04/21/17 12:22 96.5 76 20 146/96 99 04/21/17 08:58 99.1 74 20 133/86 99 04/21/17 04:00 97.5 69 18 147/84 98 04/21/17 00:00 98.3 73 16 148/80 97 04/20/17 20:02 68 04/20/17 20:00 98.8 75 18 163/86 99 04/20/17 15:50 97.5 79 20 158/85 100 04/20/17 04/20/17 04/21/17 15:00 23:00 07:00 Intake Total 2294 ml 480 ml 1609 ml Output Total 500 ml Balance 1794 ml 480 ml 1609 ml Intake Oral 960 ml 480 ml 480 ml IV Total 1334 ml 1129 ml Output Urine Total 500 ml # Voids 2 2 # Bowel Movements 1 Laboratory Tests Test 04/20/17 04/21/17 04:55 07:01 White Blood Count 7.8 TH/MM3 7.3 TH/MM3 Red Blood Count 3.85 MIL/MM3 4.02 MIL/MM3 Hemoglobin 12.2 GM/DL 12.6 GM/DL Hematocrit 35.9 % 37.7 % Mean Corpuscular Volume 93.2 FL 93.9 FL Mean Corpuscular Hemoglobin 31.7 PG 31.3 PG Mean Corpuscular Hemoglobin 34.0 % 33.4 % Concent Red Cell Distribution Width 13.5 % 13.7 % Platelet Count 175 TH/MM3 182 TH/MM3 Mean Platelet Volume 8.2 FL 7.9 FL Laboratory Tests Test 04/20/17 04/20/17 04/21/17 04:55 14:05 07:01 Sodium Level 141 MEQ/L 140 MEQ/L Potassium Level 3.5 MEQ/L 3.7 MEQ/L Chloride Level 107 MEQ/L 103 MEQ/L Carbon Dioxide Level 27.1 MEQ/L 30.7 MEQ/L Anion Gap 7 MEQ/L 6 MEQ/L Blood Urea Nitrogen 10 MG/DL 9 MG/DL Creatinine 0.60 MG/DL 0.61 MG/DL Estimat Glomerular Filtration 137 ML/MIN 134 ML/MIN Rate Random Glucose 131 MG/DL 100 MG/DL Calcium Level 8.1 MG/DL 8.1 MG/DL Vitamin B12 Level 305 PG/ML Microbiology Date/Time Procedure Status Source Growth 04/20/17 04:55 Aerobic Blood Culture - Preliminary Resulted Blood Peripheral NO GROWTH IN 1 DAY 04/20/17 04:55 Anaerobic Blood Culture - Preliminary Resulted Blood Peripheral NO GROWTH IN 1 DAY 04/20/17 05:05 Aerobic Blood Culture - Preliminary Resulted Blood Peripheral NO GROWTH IN 1 DAY 04/20/17 05:05 Anaerobic Blood Culture - Preliminary Resulted Blood Peripheral NO GROWTH IN 1 DAY Microbiology Date/Time Procedure Status Source Growth 04/18/17 06:10 Aerobic Blood Culture - Preliminary Resulted Blood Peripheral Staph Sp Coagulase Negative 04/18/17 06:10 Anaerobic Blood Culture - Preliminary Resulted Staph Sp Coagulase Negative 04/18/17 06:20 Aerobic Blood Culture - Preliminary Resulted Blood Peripheral Staphylococcus Aureus 04/18/17 06:20 Anaerobic Blood Culture - Preliminary Resulted Staphylococcus Aureus 04/20/17 04:55 Aerobic Blood Culture Received Blood Peripheral Pending 04/20/17 04:55 Anaerobic Blood Culture Received Blood Peripheral Pending 04/20/17 05:05 Aerobic Blood Culture Received Blood Peripheral Pending 04/20/17 05:05 Anaerobic Blood Culture Received Blood Peripheral Pending PHYSICAL EXAMINATION GEN: No acute distress. Awake and alert. HEENT: Oropharynx no visible lesions. Moist mucosa. Lungs: Clear breath sounds. Heart: Regular S1-S2 without murmurs. Abdomen: Bowel sounds present, soft, no tenderness. Extremities: No clubbing or cyanosis or edema. Skin: Both arms have erythema which has a sunburn-like appearance from the sleeve line at the upper arm to the wrist. Diffuse scaly dry excoriated skin lesions. Neuro: No gross focal findings. Psychiatric: Calm and cooperative. IMPRESSION: Positive blood culture. No clear source. Extensive psoriasis. RECOMMENDATIONS 1. Change vancomycin to Ceftriaxone. 2. Monitor follow up blood cultures. If positive for staph aureus or Hominis he should have a BRIGITTE. If negative give Ceftriaxone to complete total of 7 days of IV antibiotic from day of positive blood culture. Flakito Frye MD Apr 21, 2017 15:09
[2017-04-21] MEDS: cefTRIAXone INJ 2,000 MG in SODIUM CHLORIDE 0.9% INJ 100 ML IV SCH (15:30)
[2017-04-22] VITALS (7 sets, daily range): BP systolic 126–163; BP diastolic 77–86; PULSE 68–84; RESP 16–18; TEMP 97.3–99; O2SAT 97–100
[2017-04-22 06:56] LABS: HEMATOCRIT 39.2 % (39.0-51.0); MEAN CELL VOLUME 92.4 FL (80.0-100.0); MEAN CORPUSCULAR HEMOGLOBIN 31.4 PG (27.0-34.0); PLATELET COUNT 201 TH/MM3 (150-450); RED BLOOD COUNT 4.25 MIL/MM3 (4.50-5.90); RED CELL DISTRIBUTION WIDTH 13.8 % (11.6-17.2); REVIEW FLAG FINAL
[2017-04-22 07:40] LABS: BICARBONATE 33.1 MEQ/L (21.0-32.0); POTASSIUM 3.9 MEQ/L (3.5-5.1)
[2017-04-22] MEDS: ENOXAPARIN SODIUM 40 MG/0.4 ML SYRINGE SQ SCH (08:17)
[2017-04-22] MEDS: MULTIVITAMIN TAB PO SCH (08:17)
[2017-04-22] MEDS: THIAMINE HCL 100 MG TAB PO SCH (08:17)
[2017-04-22] MEDS: FOLIC ACID 1 MG TAB PO SCH (08:17)
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
[2017-04-22] MEDS: SODIUM CHLORIDE 0.9% FLUSH 10 ML FLUSH IV FLUSH SCH ×2 (16:48→20:30)
[2017-04-22] MEDS: cefTRIAXone INJ 2,000 MG in SODIUM CHLORIDE 0.9% INJ 100 ML IV SCH (16:48)
[2017-04-23] VITALS (7 sets, daily range): BP systolic 106–141; BP diastolic 68–80; PULSE 64–83; RESP 16–20; TEMP 96.1–99.3; O2SAT 97–100
[2017-04-23 08:32] LABS: HEMATOCRIT 39.9 % (39.0-51.0); MEAN CORPUSCULAR HEMOGLOBIN 31.6 PG (27.0-34.0); MEAN CORPUSCULAR HGB CONC 33.9 % (32.0-36.0); PLATELET COUNT 201 TH/MM3 (150-450); RED BLOOD COUNT 4.29 MIL/MM3 (4.50-5.90); RED CELL DISTRIBUTION WIDTH 13.8 % (11.6-17.2); REVIEW FLAG FINAL; WHITE BLOOD COUNT 7.5 TH/MM3 (4.0-11.0)
[2017-04-23 08:47] LABS: BICARBONATE 30.1 MEQ/L (21.0-32.0); POTASSIUM 3.7 MEQ/L (3.5-5.1)
[2017-04-23] MEDS: MULTIVITAMIN TAB PO SCH (08:53)
[2017-04-23] MEDS: THIAMINE HCL 100 MG TAB PO SCH (08:53)
[2017-04-23] MEDS: FOLIC ACID 1 MG TAB PO SCH (08:53)
[2017-04-23] MEDS: SODIUM CHLORIDE 0.9% FLUSH 10 ML FLUSH IV FLUSH SCH ×2 (08:54→21:00)
[2017-04-23] MEDS: ENOXAPARIN SODIUM 40 MG/0.4 ML SYRINGE SQ SCH (08:54)
--- NOTE | 2017-04-23 13:40 | HHI.FPPN ---
Subjective Remarks Patient seen and examined this morning by Medical Team. No acute events overnight. Patient states that he is doing well and his cognition appears to be improving. He has no complaints and denies any fevers, chills, SOB, chest pain, ABD pain, NVD, and calf tenderness. (Alex Anaya MD R1) Objective Vitals Vital Signs Date Time Temp Pulse Resp B/P Pulse Ox O2 Delivery O2 Flow Rate FiO2 04/23/17 12:43 98.5 83 20 106/68 98 04/23/17 08:00 99.3 71 20 132/76 99 04/23/17 04:00 96.1 79 18 141/72 97 04/23/17 00:00 97.0 64 16 138/80 98 04/22/17 20:12 78 04/22/17 20:00 97.3 74 18 137/83 97 04/22/17 16:00 99.0 71 16 126/77 97 I/O 04/22/17 04/22/17 04/22/17 04/23/17 04/23/17 04/23/17 06:59 14:59 22:59 06:59 14:59 22:59 Intake Total 120 ml 1800 ml 720 ml 480 ml Balance 120 ml 1800 ml 720 ml 480 ml Intake Oral 120 ml 1800 ml 720 ml 480 ml # Voids 1 6 5 # Bowel Movements 2 (Alex Anaya MD R1) Result Diagram: 04/23/17 0750 04/23/17 0750 Objective Remarks GENERAL: 61 y/o M lying in bed in NAD watching television. SKIN: Extensive plaque psoriasis on back, arms, legs, chest, abdomen. Also with sunburns. Clear ulceration on right back of neck with clear serous discharge, better than at admission. Does not appear affected. Multiple hemorrhagic bullae on bottom of feet. HEAD: Atraumatic. Normocephalic. Minor abrasion on left temporal region with dried eschar. EYES: Pupils equal round and reactive. Extraocular motions intact. No scleral icterus. No injection or drainage. ENT: Nose without bleeding, purulent drainage or septal hematoma. Throat without erythema, tonsillar hypertrophy or exudate. Uvula midline. Airway patent. NECK: Trachea midline. No JVD or lymphadenopathy. Supple, nontender, no meningeal signs. CARDIOVASCULAR: Regular rate and rhythm without murmurs, gallops, or rubs. RESPIRATORY: CTAB with no CRW. GASTROINTESTINAL: Abdomen soft, non-tender, nondistended. No hepato-splenomegaly , or palpable masses. No guarding. MUSCULOSKELETAL: Extremities without clubbing, cyanosis, or edema. No calf tenderness. Negative Homans sign bilaterally. NEUROLOGICAL: Awake and alert. Cranial nerves II through XII intact. Motor and sensory grossly within normal limits. Five out of 5 muscle strength in all muscle groups. Normal speech. (Alex Anaya MD R1) A/P Assessment and Plan 61 year old male found down on side of [facility], admitted for altered mental status , rhabdomyolysis, alcohol abuse. Now with bacteremia, staph hominis. Repeat cultures pending. Discharge Planning Plan is to go back to [place] with his sister. He has a friend in town that plans to help him get back to [place]. (Alex Anaya MD R1) Attending Attestation Patient seen and examined. Case reviewed and discussed with the resident team. Agree with plan of care as discussed with me and documented in the resident note. he is having some cognitive improvement which would not be seen with Elva (Sienna Watkins MD) Problem List: (1) Bacteremia Status: Acute Plan: Staph aureus/hominis in blood. Vital signs stable. No tachycardia or hypotension. White count normal. Neutrophils elevated. Poor skin barrier due to extensive sunburns and plaque psoriasis. 2D ECHO showing no vegetations. No thrombotic emboli seen, no heart murmur. - Started on Vancomycin (04/19-04/21) - Switched to Ceftriaxone (04/21 - ). - Plan for 7 total days of antibiotics from first day of positive blood culture. - Infectious disease on board - Repeat blood culture pending, no growth to date - BRIGITTE if second set of blood cultures positive to rule out endocarditis (2) Altered mental status Status: Resolved Plan: Found down on side of road, does not recall the details about what happened. No reported history of seizures or syncope. ROS essentially negative. No neurological deficits on exam. WBC elevated to 11.2, trended down to normal.AST elevated in alcoholism pattern (AST 111, ALT 49). Ammonia normal. CK elevated to 1829, trending down. CRP of 8.0. CT head negative. Chest x-ray normal. UA normal. UDS negative, alcohol negative. DDx includes syncope, seizure , alcohol withdrawal, intoxication, stroke, delirium. EEG done. Carotid ultrasound normal. Has bacteremia. Seems to have baseline dementia. Extensive alcoholism. - RPR non-reactive - B12 normal - Safety net for discharge (3) Rhabdomyolysis Status: Resolved Plan: CK elevated to 1829 after being found down on ground. Received 2 liters via fluid boluses in the ED. Received maintenance fluids thereafter. CK trended down. Creatinine down. - Switch to PO fluids (4) Alcoholism Status: Chronic Plan: Significant alcoholism history. No alcohol withdrawal symptoms currently. - [facility] protocol - Thiamine, folic acid, multivitamin - Benzodiazepines per [facility] protocol scoring - Counseling on alcoholism - Referral to outpatient rehab - Case management consult (5) No contraindication to deep vein thrombosis (DVT) prophylaxis Status: Acute Plan: - Lovenox 40 mg daily (Alex Anaya MD R1) Problem Qualifiers (1) Altered mental status: Qualified Code: R41.0 - Disorientation (2) Rhabdomyolysis: Qualified Code: M62.82 - Non-traumatic rhabdomyolysis Alex Anaya MD R1 Apr 23, 2017 13:40 Sienna Watkins MD Apr 26, 2017 14:15
[2017-04-23] MEDS: cefTRIAXone INJ 2,000 MG in SODIUM CHLORIDE 0.9% INJ 100 ML IV SCH (16:38)
[2017-04-24] VITALS: BP 157/82; PULSE 66; RESP 16; TEMP 96.9; O2SAT 100
[2017-04-24] MEDS ORDERED: PHARMACY ORDERED LAB ONE (01:45)
[2017-04-24 04:00] VITALS: BP 116/68; PULSE 69; RESP 16; TEMP 96.7; O2SAT 99
[2017-04-24 06:36] LABS: HEMATOCRIT 40.7 % (39.0-51.0); MEAN CELL VOLUME 93.4 FL (80.0-100.0); MEAN CORPUSCULAR HEMOGLOBIN 31.3 PG (27.0-34.0); MEAN CORPUSCULAR HGB CONC 33.5 % (32.0-36.0); PLATELET COUNT 204 TH/MM3 (150-450); RED BLOOD COUNT 4.35 MIL/MM3 (4.50-5.90); RED CELL DISTRIBUTION WIDTH 13.8 % (11.6-17.2); REVIEW FLAG FINAL; WHITE BLOOD COUNT 7.5 TH/MM3 (4.0-11.0)
[2017-04-24 06:59] LABS: BICARBONATE 29.4 MEQ/L (21.0-32.0); POTASSIUM 3.8 MEQ/L (3.5-5.1)
--- NOTE | 2017-04-24 07:38 | HHI.FPPN ---
Subjective Remarks No acute events. Vital signs stable. No leukocytosis. Repeat blood cultures no growth to date. No chest pain, shortness of breath, no abdominal pain, nausea, vomiting, diarrhea, calf tenderness or swelling. (Sam Jurado MD R2) Objective Vitals Vital Signs Date Time Temp Pulse Resp B/P Pulse Ox O2 Delivery O2 Flow Rate FiO2 04/24/17 04:00 96.7 69 16 116/68 99 04/24/17 00:00 96.9 66 16 157/82 100 04/23/17 23:25 70 04/23/17 20:00 98.7 71 18 126/75 100 04/23/17 16:55 98.9 75 20 114/80 99 04/23/17 12:43 98.5 83 20 106/68 98 04/23/17 08:00 99.3 71 20 132/76 99 I/O 04/23/17 04/23/17 04/23/17 04/24/17 04/24/17 04/24/17 07:00 15:00 23:00 07:00 15:00 23:00 Intake Total 480 ml 600 ml 240 ml 720 ml Output Total 500 ml Balance 480 ml 600 ml -260 ml 720 ml Intake Oral 480 ml 600 ml 240 ml 720 ml Output Urine Total 500 ml # Voids 5 2 5 # Bowel Movements 1 (Sam Jurado MD R2) Result Diagram: 04/24/17 0610 04/24/17 0610 Objective Remarks GENERAL: Resting in bed, no distress SKIN: Extensive plaque psoriasis on back, arms, legs, chest, abdomen. Also with sunburns. Clear ulceration on right back of neck with clear serous discharge, better than at admission. Does not appear affected. Multiple hemorrhagic bullae on bottom of feet. HEAD: Atraumatic. Normocephalic. Minor abrasion on left temporal region with dried eschar. EYES: Pupils equal round and reactive. Extraocular motions intact. No scleral icterus. No injection or drainage. ENT: Nose without bleeding, purulent drainage or septal hematoma. Throat without erythema, tonsillar hypertrophy or exudate. Uvula midline. Airway patent. NECK: Trachea midline. No JVD or lymphadenopathy. Supple, nontender, no meningeal signs. CARDIOVASCULAR: Regular rate and rhythm without murmurs, gallops, or rubs. RESPIRATORY: CTAB with no CRW. GASTROINTESTINAL: Abdomen soft, non-tender, nondistended. No hepato-splenomegaly , or palpable masses. No guarding. MUSCULOSKELETAL: Extremities without clubbing, cyanosis, or edema. No calf tenderness. Negative Homans sign bilaterally. NEUROLOGICAL: Awake and alert. Cranial nerves II through XII intact. Motor and sensory grossly within normal limits. Five out of 5 muscle strength in all muscle groups. Normal speech. (Sam Jurado MD R2) A/P Assessment and Plan 61 year old male found down on side of road, admitted for altered mental status , rhabdomyolysis, alcohol abuse. Now with bacteremia, staph hominis and staph aureus. Repeat cultures pending. Discharge Planning Plan is to go back to [place] with his sister. He has a friend in town that plans to help him get back to [place]. Would benefit from wheeled walker and PT at rehab. (Sam Jurado MD R2) Attending Attestation Patient seen and examined. Case reviewed and discussed with the resident team. Agree with plan of care as discussed with me and documented in the resident note. pt is eager to leave the hospital and fortunately has friends and family who will help care for him (Sienna Watkins MD) Problem List: (1) Bacteremia Status: Acute Plan: Staph aureus/hominis in blood. Vital signs stable. No tachycardia or hypotension. White count normal. Poor skin barrier due to extensive sunburns and plaque psoriasis. 2D ECHO showing no vegetations. No thrombotic emboli seen , no heart murmur. - Started on Vancomycin (04/19-04/21) - Switched to Ceftriaxone (04/21 - ). - Plan for 7 total days of antibiotics from first day of positive blood culture. - Infectious disease on board - Repeat blood culture pending, no growth to date - BRIGITTE if second set of blood cultures positive to rule out endocarditis (2) Altered mental status Status: Resolved Plan: Found down on side of road, does not recall the details about what happened. No reported history of seizures or syncope. ROS essentially negative. No neurological deficits on exam. WBC elevated to 11.2 initially, trended down to normal. AST elevated in alcoholism pattern (AST 111, ALT 49). Ammonia normal. CK elevated to 1829, trended down. CRP of 8.[address] head negative. Chest x-ray normal. UA normal. UDS negative, alcohol negative. DDx includes syncope, seizure, alcohol withdrawal, intoxication, stroke, delirium. EEG shows no seizure activity. Carotid ultrasound normal. Has bacteremia, repeat blood cultures pending and negative to date. No signs of sepsis. Seems to have some baseline dementia. Extensive alcoholism. - RPR non-reactive - B12 normal - Follow blood cultures, on IV ceftriaxone - Safety net for discharge (3) Rhabdomyolysis Status: Resolved Plan: CK elevated to 1829 after being found down on ground, trended down after IV fluids. - Switch to PO fluids (4) Alcoholism Status: Chronic Plan: Significant alcoholism history. No alcohol withdrawal symptoms currently. - Thiamine, folic acid, multivitamin - Counseling on alcoholism - Referral to outpatient rehab - Case management consult (5) No contraindication to deep vein thrombosis (DVT) prophylaxis Status: Acute Plan: - Lovenox 40 mg daily (Sam Jurado MD R2) Problem Qualifiers (1) Altered mental status: Qualified Code: R41.0 - Disorientation (2) Rhabdomyolysis: Qualified Code: M62.82 - Non-traumatic rhabdomyolysis Sam Jurado MD R2 Apr 24, 2017 07:38 Sienna Watkins MD Apr 26, 2017 14:16
[2017-04-24] MEDS: MULTIVITAMIN TAB PO SCH (08:27)
[2017-04-24] MEDS: ENOXAPARIN SODIUM 40 MG/0.4 ML SYRINGE SQ SCH (08:27)
[2017-04-24] MEDS: FOLIC ACID 1 MG TAB PO SCH (08:27)
[2017-04-24] MEDS: THIAMINE HCL 100 MG TAB PO SCH (08:27)
[2017-04-24] MEDS: SODIUM CHLORIDE 0.9% FLUSH 10 ML FLUSH IV FLUSH SCH ×2 (08:28→21:00)
[2017-04-24 08:57] VITALS: BP 105/65; PULSE 72; RESP 21; TEMP 98.2; O2SAT 96
[2017-04-24 12:06] VITALS: BP 105/67; PULSE 74; RESP 21; TEMP 98.8; O2SAT 99
[2017-04-24] MEDS: cefTRIAXone INJ 2,000 MG in SODIUM CHLORIDE 0.9% INJ 100 ML IV SCH (15:29)
[2017-04-24 16:12] VITALS: BP 102/64; PULSE 82; RESP 21; TEMP 99.5; O2SAT 97
[2017-04-24 20:00] VITALS: BP 129/74; PULSE 72; RESP 19; TEMP 96.9; O2SAT 97
[2017-04-25] VITALS: BP 128/78; PULSE 86; RESP 18; TEMP 96.6; O2SAT 98
[2017-04-25 04:00] VITALS: BP 121/68; PULSE 71; RESP 19; TEMP 97.7; O2SAT 98
[2017-04-25 07:44] LABS: HEMATOCRIT 40.5 % (39.0-51.0); MEAN CELL VOLUME 93.3 FL (80.0-100.0); MEAN CORPUSCULAR HEMOGLOBIN 31.6 PG (27.0-34.0); MEAN CORPUSCULAR HGB CONC 33.9 % (32.0-36.0); PLATELET COUNT 220 TH/MM3 (150-450); RED BLOOD COUNT 4.34 MIL/MM3 (4.50-5.90); RED CELL DISTRIBUTION WIDTH 13.8 % (11.6-17.2); REVIEW FLAG FINAL; WHITE BLOOD COUNT 7.5 TH/MM3 (4.0-11.0)
[2017-04-25 08:00] VITALS: BP 114/83; PULSE 78; RESP 18; TEMP 96.8; O2SAT 100
--- NOTE | 2017-04-25 09:10 | HHI.FPPN ---
Subjective Remarks Patient seen and examined this morning. No acute events overnight with VSS. Patient's mentation a little slower and unclear than previous exams, but remains oriented to [facility]. He currently has no complaints. He denies any fevers, chills, SOB, chest pain, NVD, abdominal pain, or calf tenderness. He verbalizes that he understands that we will continue his antibiotic regimen until 7 doses of Ceftriaxone are given, and then he will be discharged to his family friend for transportation back to [place]. (Alex Anaya MD R1) Objective Vitals Vital Signs Date Time Temp Pulse Resp B/P Pulse Ox O2 Delivery O2 Flow Rate FiO2 04/25/17 04:00 97.7 71 19 121/68 98 04/25/17 00:00 96.6 86 18 128/78 98 04/24/17 20:00 96.9 72 19 129/74 97 04/24/17 16:12 99.5 82 21 102/64 97 04/24/17 12:06 98.8 74 21 105/67 99 I/O 04/24/17 04/24/17 04/24/17 04/25/17 04/25/17 04/25/17 07:00 15:00 23:00 07:00 15:00 23:00 Intake Total 720 ml 600 ml 480 ml Balance 720 ml 600 ml 480 ml Intake Oral 720 ml 600 ml 480 ml # Voids 5 2 2 (Alex Anaya MD R1) Result Diagram: 04/25/17 0723 04/24/17 0610 Objective Remarks GENERAL: 61 y/o M sitting up in bed in NAD eating breakfast. SKIN: Extensive plaque psoriasis on back, arms, legs, chest, abdomen. Also with sunburns. Clear ulceration on right back of neck with clear serous discharge, better than at admission. Does not appear affected. Multiple hemorrhagic bullae on bottom of feet. HEENT: Atraumatic. Normocephalic. Minor abrasion on left temporal region with dried eschar. EOMI. No JVD or LAD appreciated. MMM. No rhinorrhea. EYES: Pupils equal round and reactive. Extraocular motions intact. No scleral icterus. No injection or drainage. CARDIOVASCULAR: Regular rate and rhythm without murmurs, gallops, or rubs. RESPIRATORY: CTAB with no CRW. No increased work of breathing. GASTROINTESTINAL: Abdomen soft, non-tender, nondistended with +BS. No hepato- splenomegaly, or palpable masses. MUSCULOSKELETAL: Extremities without clubbing, cyanosis, or edema. No calf tenderness. NEUROLOGICAL: Awake and alert. Cranial nerves II through XII intact. Motor and sensory grossly within normal limits. Normal speech. Oriented to PPTx3. (Alex Anaya MD R1) A/P Assessment and Plan 61 year old male found down on side of road, admitted for altered mental status , rhabdomyolysis, alcohol abuse. Now with bacteremia, staph hominis and staph aureus. Repeat cultures pending. Discharge Planning Plan is to go back to [place] with his sister. He has a friend in town that plans to help him get back to [place]. Would benefit from wheeled walker and PT at rehab. (Alex Anaya MD R1) Attending Attestation Patient seen and examined. Case reviewed and discussed with the resident team. Agree with plan of care as discussed with me and documented in the resident note. stable and improving overall (Sienna Watknis MD) Problem List: (1) Bacteremia Status: Acute Plan: Staph aureus/hominis in blood. Vital signs stable. No tachycardia or hypotension. White count normal. Poor skin barrier due to extensive sunburns and plaque psoriasis. 2D ECHO showing no vegetations. No thrombotic emboli seen , no heart murmur. - Started on Vancomycin (04/19-04/21) - Switched to Ceftriaxone (04/21 - ). Scheduled last day 04/27. - Plan for 7 total days of antibiotics from first day of positive blood culture. - Infectious disease on board - Repeat blood culture pending, no growth to date - BRIGITTE if second set of blood cultures positive to rule out endocarditis (2) Altered mental status Status: Resolved Plan: Found down on side of road, does not recall the details about what happened. No reported history of seizures or syncope. ROS essentially negative. No neurological deficits on exam. WBC elevated to 11.2 initially, trended down to normal. AST elevated in alcoholism pattern (AST 111, ALT 49). Ammonia normal. CK elevated to 1829, trended down. CRP of 8.[address] head negative. Chest x-ray normal. UA normal. UDS negative, alcohol negative. DDx includes syncope, seizure, alcohol withdrawal, intoxication, stroke, delirium. EEG shows no seizure activity. Carotid ultrasound normal. Has bacteremia, repeat blood cultures pending and negative to date. No signs of sepsis. Seems to have some baseline dementia. Extensive alcoholism. - RPR non-reactive - B12 normal - Follow blood cultures, on IV ceftriaxone - Patient to be discharged into care of family friend who will assist with transportation back to [place] in order for patient to continue care with Sister , Case Management assisting (3) Rhabdomyolysis Status: Resolved Plan: CK elevated to 1829 after being found down on ground, trended down after IV fluids. - Switch to PO fluids (4) Alcoholism Status: Chronic Plan: Significant alcoholism history. No alcohol withdrawal symptoms currently. - Thiamine, folic acid, multivitamin - Counseling on alcoholism - Referral to outpatient rehab - Case management consult (5) No contraindication to deep vein thrombosis (DVT) prophylaxis Status: Acute Plan: - Lovenox 40 mg daily (Alex Anaya MD R1) Problem Qualifiers (1) Altered mental status: Qualified Code: R41.0 - Disorientation (2) Rhabdomyolysis: Qualified Code: M62.82 - Non-traumatic rhabdomyolysis Alex Anaya MD R1 Apr 25, 2017 09:10 Sienna Watkins MD Apr 26, 2017 14:17
[2017-04-25] MEDS: THIAMINE HCL 100 MG TAB PO SCH (09:52)
[2017-04-25] MEDS: MULTIVITAMIN TAB PO SCH (09:52)
[2017-04-25] MEDS: ENOXAPARIN SODIUM 40 MG/0.4 ML SYRINGE SQ SCH (09:52)
[2017-04-25] MEDS: SODIUM CHLORIDE 0.9% FLUSH 10 ML FLUSH IV FLUSH SCH ×2 (09:52→20:38)
[2017-04-25] MEDS: FOLIC ACID 1 MG TAB PO SCH (09:52)
[2017-04-25 12:00] VITALS: BP 114/83; PULSE 78; RESP 18; TEMP 96.8; O2SAT 100
[2017-04-25 16:00] VITALS: BP 121/73; PULSE 71; RESP 18; TEMP 97.2; O2SAT 100
[2017-04-25] MEDS: cefTRIAXone INJ 2,000 MG in SODIUM CHLORIDE 0.9% INJ 100 ML IV SCH (17:48)
[2017-04-25] MEDS: PETROLATUM 30 GM TUBE TOPICAL SCH ×2 (17:49→20:37)
[2017-04-25 21:34] VITALS: BP 119/69; PULSE 74; RESP 20; TEMP 98.1; O2SAT 98
[2017-04-26] VITALS (7 sets, daily range): BP systolic 100–120; BP diastolic 61–74; PULSE 67–89; RESP 16–20; TEMP 96.7–98.9; O2SAT 99–100
[2017-04-26 08:07] LABS: HEMATOCRIT 41.8 % (39.0-51.0); MEAN CELL VOLUME 93.9 FL (80.0-100.0); MEAN CORPUSCULAR HEMOGLOBIN 30.8 PG (27.0-34.0); MEAN CORPUSCULAR HGB CONC 32.8 % (32.0-36.0); PLATELET COUNT 212 TH/MM3 (150-450); RED BLOOD COUNT 4.46 MIL/MM3 (4.50-5.90); RED CELL DISTRIBUTION WIDTH 13.8 % (11.6-17.2); REVIEW FLAG FINAL
--- NOTE | 2017-04-26 08:31 | HHI.FPPN ---
Subjective Remarks Patient seen and examined this morning. No acute events overnight with vital signs stable. When asked patient is still confused about his discharge planning , however is agreeable to being discharged into care of family friend, Puma Rogers ([phone]), for transportation back to [place] to be with his sister. He currently has no complaints and denies any fevers, chills, shortness of breath, chest pain, NVD, abdominal pain, or calf tenderness. (Alex Anaya MD R1) Objective Vitals Vital Signs Date Time Temp Pulse Resp B/P Pulse Ox O2 Delivery O2 Flow Rate FiO2 04/26/17 06:20 96.7 89 20 120/74 99 04/26/17 00:36 97.7 67 16 109/61 100 04/25/17 21:34 98.1 74 20 119/69 98 04/25/17 16:00 97.2 71 18 121/73 100 04/25/17 12:00 96.8 78 18 114/83 100 I/O 04/25/17 04/25/17 04/25/17 04/26/17 04/26/17 04/26/17 07:00 15:00 23:00 07:00 15:00 23:00 Intake Total 1200 ml Balance 1200 ml Intake Oral 1200 ml # Voids 6 1 # Bowel Movements 1 (Alex Anaya MD R1) Result Diagram: 04/26/17 0732 04/24/17 0610 Objective Remarks GENERAL: 61 y/o M lying in bed in no acute distress. SKIN: Extensive plaque psoriasis on back, arms, legs, chest, abdomen. Also with sunburns. Lesions currently covered with petroleum ointment. Clear ulceration on right back of neck with clear serous discharge, better than at admission. Does not appear affected. Multiple hemorrhagic bullae on bottom of feet. HEENT: Atraumatic. Normocephalic. Minor abrasion on left temporal region with dried eschar. EOMI. No JVD or LAD appreciated. MMM. No rhinorrhea. EYES: Pupils equal round and reactive. Extraocular motions intact. No scleral icterus. No injection or drainage. CARDIOVASCULAR: Regular rate and rhythm without murmurs, gallops, or rubs. RESPIRATORY: CTAB with no CRW. No increased work of breathing. GASTROINTESTINAL: Abdomen soft, non-tender, nondistended with +BS. No hepato- splenomegaly, or palpable masses. MUSCULOSKELETAL: Extremities without clubbing, cyanosis, or edema. No calf tenderness. NEUROLOGICAL: Awake and alert. Cranial nerves II through XII intact. Motor and sensory grossly within normal limits. Normal speech. Oriented to PPTx3. (Alex Anaya MD R1) A/P Assessment and Plan 61 year old male found down on side of road, admitted for altered mental status , rhabdomyolysis, alcohol abuse. Now with bacteremia, staph hominis and staph aureus. Repeat cultures pending. Discharge Planning Patient to be discharged tomorrow pending clinical course to the care of Puma Rogers, family friend, to assist patient in returning to [place] to continue care with his sister. Patient would benefit from wheeled walker and PT at rehab. (Alex Anaya MD R1) Attending Attestation Patient seen and examined. Case reviewed and discussed with the resident team. Agree with plan of care as discussed with me and documented in the resident note. finishing up abx (Sienna Watkins MD) Problem List: (1) Bacteremia Status: Acute Plan: Staph aureus/hominis in blood. Vital signs stable. No tachycardia or hypotension. White count normal. Poor skin barrier due to extensive sunburns and plaque psoriasis. 2D ECHO showing no vegetations. No thrombotic emboli seen , no heart murmur. - Started on Vancomycin (04/19-04/21) - Switched to Ceftriaxone (04/21 - ). Scheduled last day 04/27. - Plan for 7 total days of antibiotics from first day of positive blood culture. - Infectious disease on board - Repeat blood culture pending, no growth to date - BRIGITTE if second set of blood cultures positive to rule out endocarditis (2) Altered mental status Status: Resolved Plan: Found down on side of road, does not recall the details about what happened. No reported history of seizures or syncope. ROS essentially negative. No neurological deficits on exam. WBC elevated to 11.2 initially, trended down to normal. AST elevated in alcoholism pattern (AST 111, ALT 49). Ammonia normal. CK elevated to 1829, trended down. CRP of 8.[address] head negative. Chest x-ray normal. UA normal. UDS negative, alcohol negative. DDx includes syncope, seizure, alcohol withdrawal, intoxication, stroke, delirium. EEG shows no seizure activity. Carotid ultrasound normal. Has bacteremia, repeat blood cultures pending and negative to date. No signs of sepsis. Seems to have some baseline dementia. Extensive alcoholism. - RPR non-reactive - B12 normal - Follow blood cultures, on IV ceftriaxone - Patient to be discharged into care of family friend who will assist with transportation back to [place] in order for patient to continue care with Sister , Case Management assisting (3) Rhabdomyolysis Status: Resolved Plan: CK elevated to 1829 after being found down on ground, trended down after IV fluids. - Switch to PO fluids (4) Alcoholism Status: Chronic Plan: Significant alcoholism history. No alcohol withdrawal symptoms currently. - Thiamine, folic acid, multivitamin - Counseling on alcoholism - Referral to outpatient rehab - Case management consult (5) No contraindication to deep vein thrombosis (DVT) prophylaxis Status: Acute Plan: - Lovenox 40 mg daily (Alex Anaya MD R1) Problem Qualifiers (1) Altered mental status: Qualified Code: R41.0 - Disorientation (2) Rhabdomyolysis: Qualified Code: M62.82 - Non-traumatic rhabdomyolysis Alex Anaya MD R1 Apr 26, 2017 08:31 Sienna Watkins MD Apr 26, 2017 14:18
[2017-04-26] MEDS: MULTIVITAMIN TAB PO SCH (09:21)
[2017-04-26] MEDS: THIAMINE HCL 100 MG TAB PO SCH (09:21)
[2017-04-26] MEDS: FOLIC ACID 1 MG TAB PO SCH (09:21)
[2017-04-26] MEDS: cefTRIAXone INJ 2,000 MG in SODIUM CHLORIDE 0.9% INJ 100 ML IV SCH (09:21)
[2017-04-26] MEDS: ENOXAPARIN SODIUM 40 MG/0.4 ML SYRINGE SQ SCH (09:22)
[2017-04-26] MEDS: PETROLATUM 30 GM TUBE TOPICAL SCH ×2 (09:23→20:54)
[2017-04-26] MEDS: SODIUM CHLORIDE 0.9% FLUSH 10 ML FLUSH IV FLUSH SCH ×2 (09:25→20:53)
[2017-04-27] VITALS: BP 108/58; PULSE 69; RESP 16; TEMP 97.5; O2SAT 99
[2017-04-27 04:00] VITALS: BP 126/75; PULSE 63; RESP 16; TEMP 98.3; O2SAT 98
[2017-04-27 07:11] LABS: HEMATOCRIT 41.3 % (39.0-51.0); MEAN CELL VOLUME 93.7 FL (80.0-100.0); MEAN CORPUSCULAR HEMOGLOBIN 31.1 PG (27.0-34.0); MEAN CORPUSCULAR HGB CONC 33.1 % (32.0-36.0); PLATELET COUNT 208 TH/MM3 (150-450); RED BLOOD COUNT 4.41 MIL/MM3 (4.50-5.90); RED CELL DISTRIBUTION WIDTH 13.7 % (11.6-17.2); REVIEW FLAG FINAL; WHITE BLOOD COUNT 7.6 TH/MM3 (4.0-11.0)
[2017-04-27] MEDS ORDERED: GNP100TA3 PO (07:54)
[2017-04-27] MEDS ORDERED: FOLI1TAB6 PO (07:54)
[2017-04-27] MEDS ORDERED: THERTAB15 PO (07:54)
--- NOTE | 2017-04-27 07:55 | HHI.DCPOC ---
Discharge Care Plan Diagnosis: (1) Altered mental status (2) Rhabdomyolysis Goals to Promote Your Health * To prevent worsening of your condition and complications * To maintain your health at the optimal level Directions to Meet Your Goals Take your medications as prescribed Follow your dietary instruction Follow activity as directed Keep your appointments as scheduled Take your immunizations and boosters as scheduled If your symptoms worsen call your PCP, if no PCP go to Urgent Care Center or Emergency Room Smoking is Dangerous to Your Health. Avoid second hand smoke Call the 24-hour hour crisis hotline for domestic abuse at Alex Anaya MD R1 Apr 27, 2017 07:55
[2017-04-27 08:52] VITALS: BP 103/66; PULSE 72; RESP 16; TEMP 98.3; O2SAT 98
[2017-04-27] MEDS: THIAMINE HCL 100 MG TAB PO SCH (09:24)
[2017-04-27] MEDS: FOLIC ACID 1 MG TAB PO SCH (09:24)
[2017-04-27] MEDS: cefTRIAXone INJ 2,000 MG in SODIUM CHLORIDE 0.9% INJ 100 ML IV SCH (09:24)
[2017-04-27] MEDS: MULTIVITAMIN TAB PO SCH (09:24)
[2017-04-27] MEDS: SODIUM CHLORIDE 0.9% FLUSH 10 ML FLUSH IV FLUSH SCH (09:25)
[2017-04-27] MEDS: ENOXAPARIN SODIUM 40 MG/0.4 ML SYRINGE SQ SCH (09:25)
[2017-04-27] MEDS: PETROLATUM 30 GM TUBE TOPICAL SCH (09:30)
[2017-04-27] MEDS ORDERED: ACET1TAB86 PO (11:01)
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
[2017-04-27 12:00] VITALS: BP 108/67; PULSE 77; RESP 16; TEMP 98.2; O2SAT 100
[2017-04-27 16:00] VITALS: BP 125/73; PULSE 65; RESP 16; TEMP 97.5; O2SAT 97
== END 2017-04-27 19:02 | disposition home or self-care (01) | DRG 948 ==
LOC: NEPE 05:56 → NEDA 08:11 → OBSVTOIN 08:54 → HOCB 14:01 → HOCA 22:13 → HOCB 22:13
PROVIDERS: ADMIT Family Medicine; ATTEND Family Medicine
DX: R41.0 Disorientation, unspecified (principal); M62.82 Rhabdomyolysis; F03.90 Unspecified dementia, unspecified severity, without behavioral disturbance, psychotic disturbance, mood disturbance, and anxiety; B95.8 Unspecified staphylococcus as the cause of diseases classified elsewhere; F10.20 Alcohol dependence, uncomplicated; F17.210 Nicotine dependence, cigarettes, uncomplicated; L40.0 Psoriasis vulgaris; W08.XXXA Fall from other furniture, initial encounter; Y92.9 Unspecified place or not applicable; Y90.0 Blood alcohol level of less than 20 mg/100 ml
CPT/HCPCS: 70450; 71010; 73120; 80048; 80053; 80202; 80307; 81001; 82140; 82550; 82552; 82607; 83605; 83690; 83735; 84443; 84484; 85025; 85027; 85610; 85730; 86140; 86403; 86592; 87040; 87077; 87147; 87149; 87186; 87205; 93005; 93306; 93880; 95819; J0696; J1650; J3370; J3411; J7030; J7040